=== PATIENT | male | born 1990 | race Caucasian/White ===

== ENCOUNTER 2016-03-23 16:59 | Emergency (ER) | payer BC ==
[~2016-03-23] VITALS: Ht 182.9 cm; Wt 112.4 kg
[~2016-03-23 16:59] MED LIST: IBUPROFEN800 MG PO; NORCO 5/3251 TABLET PO
[2016-03-23 21:43] VITALS: BP 133/83
== END 2016-03-23 21:49 | disposition home or self-care (01) ==
LOC: EME 16:59
DX: F11.23 Opioid dependence with withdrawal (principal)
CPT/HCPCS: 99281; 99285; J2060; J2550

== ENCOUNTER 2016-04-08 09:13 | Emergency (ER) | payer BC ==
[~2016-04-08] VITALS: Ht 182.9 cm; Wt 109.9 kg
[2016-04-08] MEDS ORDERED: SERTRALINE HCL50 MG PO (10:02)
[2016-04-08] MEDS ORDERED: QUETIAPINE FUMA25 MG PO (10:02)
[2016-04-08 10:16] LABS: HEMATOCRIT 43.6 % (38.0-50.0); MCH 29.8 PG (29.0-34.0); MCHC 35.6 G/DL (30.0-36.0); MCV 83.7 FL (86-99); MEAN PLAT.VOLUME 9.2 uM^3 (9.0-12.4); PLATELET COUNT 296 K/uL (156-360); RBC DIS.WIDTH-CV 13.1 % (11.8-14.6); RBC DIS.WIDTH-SD 39.2 % (39-53); RED BLOOD COUNT 5.21 M/uL (4.00-5.50); WHITE BLOOD COUNT 10.9 K/uL (4.1-10.2)
[2016-04-08 10:26] LABS: CHLORIDE 104 mEq/L (99-109); POTASSIUM 4.3 mEq/L (3.7-5.4); SODIUM 138 mEq/L (136-147)
[2016-04-08 10:28] LABS: GLUCOSE 96 mg/dL (70-99)
[2016-04-08 10:29] LABS: ANION GAP 16 MEQ/L (2-14)
[2016-04-08 10:30] LABS: TOTAL BILIRUBIN 0.8 mg/dL (0.0-1.0)
[2016-04-08 10:32] LABS: ALKALINE PHOSPHATASE 67 IU/L (3-129); GFR ESTIMATE (CALCULATED) > 59 mL/min/
[2016-04-08 10:33] LABS: UREA NITROGEN (BUN) 17 mg/dL (9-23)
[2016-04-08 10:34] LABS: DIRECT BILIRUBIN 0.2 mg/dL (0.0-0.3)
[2016-04-08 13:07] LABS: BILIRUBIN NEGATIVE; BLOOD NEGATIVE; COLOR YELLOW ((YELLOW)); GLUCOSE (STRIP) NEGATIVE; KETONES NEGATIVE; LEUKOCYTES NEGATIVE; NITRITE NEGATIVE; PROTEIN (STRIP) TRACE; SPECIFIC GRAVITY 1.035 (1.000-1.030); UROBILINOGEN 0.2 MG/DL (0.2-1.0)
[2016-04-08 13:09] LABS: ADD MIUA? NO; UCUL ADDED? NO
[2016-04-08] MEDS ORDERED: TRAZODONE HCL50 MG PO (13:24)
[2016-04-08] MEDS ORDERED: ZOFRAN ODT4 MG PO (13:24)
[2016-04-08 13:26] LABS: AMPHETAMINE NEGATIVE (500 ng/mL); BARBITURATES NEGATIVE (200 ng/mL); BENZODIAZEPINES NEGATIVE (150 ng/mL); COCAINE NEGATIVE (150 ng/mL); INTERNAL CONTROLS VALID? YES; METHADONE NEGATIVE (200 ng/mL); METHAMPHETAMINE NEGATIVE (500 ng/mL); OPIATES (MORPHINE) NEGATIVE (100 ng/mL); OXYCODONE NEGATIVE (100 ng/mL); PHENCYCLIDINE NEGATIVE (25 ng/mL); PROPOXYPHENE NEGATIVE (300 ng/mL); THC CANNABINOIDS NEGATIVE (50 ng/mL); TRICYCLIC ANTIDEPRESSANTS NEGATIVE (300 ng/mL)
[2016-04-08 13:53] VITALS: BP 137/91
== END 2016-04-08 13:50 | disposition home or self-care (01) ==
LOC: EME 09:13
PROVIDERS: Emergency Medicine
DX: B34.9 Viral infection, unspecified (principal); F41.9 Anxiety disorder, unspecified; F11.20 Opioid dependence, uncomplicated
CPT/HCPCS: 80048; 80076; 81003; 85027; 90839; 99281; 99284; J2405; J7030

== ENCOUNTER 2017-02-08 18:18 | Emergency (ER) | payer BC ==
[~2017-02-08] VITALS: Ht 182.9 cm; Wt 113.6 kg
[~2017-02-08 18:18] MED LIST changes: +QUETIAPINE FUMA25 MG PO; +SERTRALINE HCL50 MG PO; +TRAZODONE HCL50 MG PO; +ZOFRAN ODT4 MG PO
[2017-02-08 18:59] VITALS: BP 146/103
== END 2017-02-08 21:34 | disposition home or self-care (01) ==
LOC: EME 18:18 → RME 18:18
PROC: 0HQGXZZ Repair Left Hand Skin, External Approach (ICD-10-PCS; principal; 2017-02-08)
DX: S61.012A Laceration without foreign body of left thumb without damage to nail, initial encounter (principal); W26.8XXA Contact with other sharp object(s), not elsewhere classified, initial encounter; Y93.89 Activity, other specified; Y92.810 Car as the place of occurrence of the external cause
CPT/HCPCS: 99281; 99285; S0020

== ENCOUNTER 2017-03-15 21:28 | Emergency (ER) | payer BC ==
[~2017-03-15] VITALS: Ht 182.9 cm; Wt 115.4 kg
[2017-03-15 23:28] LABS: BASOPHIL (%) 0.5 % (0-1); EOSINOPHIL (%) 1.8 % (0-5); EOSINOPHIL COUNT 0.2 K/uL (0-0.3); HEMATOCRIT 34.8 % (38.0-50.0); HEMOGLOBIN 11.9 G/DL (12.5-16.6); IMMATURE GRANULOCYTE (%) 0.7 % (0.0-0.7); LYMPHOCYTE (%) 26.7 % (15-42); LYMPHOCYTE COUNT 2.2 K/uL (1.0-2.8); MCH 30.7 PG (29.0-34.0); MCHC 34.2 G/DL (30.0-36.0); MCV 89.9 FL (86-99); MONOCYTE (%) 7.6 % (3-12); MONOCYTE COUNT 0.6 K/uL (0-0.8); NEUTROPHIL (%) 62.7 % (45-76); NEUTROPHIL COUNT 5.1 K/uL (1.8-6.4); PLATELET COUNT 258 K/uL (156-360); RBC DIS.WIDTH-SD 42.3 % (39-53); RED BLOOD COUNT 3.87 M/uL (4.00-5.50); WHITE BLOOD COUNT 8.1 K/uL (4.1-10.2)
[2017-03-15 23:40] LABS: CHLORIDE 102 mEq/L (99-109); POTASSIUM 4.1 mEq/L (3.7-5.4); SODIUM 138 mEq/L (136-147)
[2017-03-15 23:42] LABS: GLUCOSE 97 mg/dL (70-99)
[2017-03-15 23:45] LABS: SERUM ETHYL ALCOHOL < 10 mg/dL
[2017-03-15 23:45] LABS: AMPHETAMINE NEGATIVE (500 ng/mL); BARBITURATES NEGATIVE (200 ng/mL); BENZODIAZEPINES PRESUMPTIVE POSITIVE (150 ng/mL); BUPRENORPHINE NEGATIVE (10 ng/mL); COCAINE NEGATIVE (150 ng/mL); METHADONE NEGATIVE (200 ng/mL); METHAMPHETAMINE NEGATIVE (500 ng/mL); OPIATES (MORPHINE) PRESUMPTIVE POSITIVE (100 ng/mL); OXYCODONE NEGATIVE (100 ng/mL); PHENCYCLIDINE NEGATIVE (25 ng/mL); PROPOXYPHENE NEGATIVE (300 ng/mL); THC CANNABINOIDS NEGATIVE (50 ng/mL); TRICYCLIC ANTIDEPRESSANTS NEGATIVE (300 ng/mL)
[2017-03-15 23:46] LABS: CREATININE 0.9 mg/dL (0.6-1.3); GFR ESTIMATE (CALCULATED) > 59 mL/min/ (58.99-99999)
[2017-03-15 23:47] LABS: UREA NITROGEN (BUN) 14 mg/dL (9-23)
[2017-03-16 00:20] LABS: BENZODIAZEPINES, URINE SCREEN POSITIVE (200 ng/mL)
[2017-03-16 02:16] VITALS: BP 118/74
== END 2017-03-16 02:17 | disposition home or self-care (01) ==
LOC: EME 21:28
PROVIDERS: Emergency Medicine
DX: F11.20 Opioid dependence, uncomplicated (principal); F13.10 Sedative, hypnotic or anxiolytic abuse, uncomplicated; F32.9 Major depressive disorder, single episode, unspecified; F41.9 Anxiety disorder, unspecified; J45.909 Unspecified asthma, uncomplicated
CPT/HCPCS: 80048; 84999; 85025; 90839; 99281; 99285; G0480